=== PATIENT | male | born 1975 | race Caucasian/White ===

== ENCOUNTER 2021-10-15 08:46 | Emergency (ER) | payer SELFPAY ==
[~2021-10-15] VITALS: Ht 157.5 cm; Wt 77.0 kg
[2021-10-15 09:05] VITALS: BP 131/84
[2021-10-15] MEDS ORDERED: BACITRACIN ZINC OINT UDPKT TOP ONE (09:30)
[2021-10-15] MEDS ORDERED: ACETAMINOPHEN 325MG TABLET PO ONE (09:30)
[2021-10-15] MEDS ORDERED: LIDOCAINE HCL/EPINEPHRINE 1%-EPI 1:100,000 20 ML VIAL INFIL ONE (09:30)
[2021-10-15] MEDS ORDERED: TETANUS, DIPHTHERIA, PERTUSSIS VAC/PF 0.5ML (>10YR OLD) IM ONE (09:30)
== END 2021-10-15 10:25 | disposition home or self-care (01) ==
LOC: ER 08:46
DX: S61.411A Laceration without foreign body of right hand, initial encounter (principal); W26.9XXA Contact with unspecified sharp object(s), initial encounter; Y93.89 Activity, other specified; Y92.89 Other specified places as the place of occurrence of the external cause; Y99.8 Other external cause status
CPT/HCPCS: 12002; 90471; 90715; 99283; J3490

== ENCOUNTER 2021-10-23 13:50 | Emergency (ER) | payer MEDICAID ==
[~2021-10-23] VITALS: Ht 170.2 cm; Wt 75.0 kg
[2021-10-23 14:01] VITALS: BP 130/84
== END 2021-10-23 16:42 | disposition home or self-care (01) ==
LOC: ER 13:50
DX: Z48.02 Encounter for removal of sutures (principal)
CPT/HCPCS: 99281